=== PATIENT | male | born 1955 | race Asian ===

== ENCOUNTER 2023-09-09 12:38 | Emergency (ER) | payer SELFPAY ==
[~2023-09-09] VITALS: Ht 162.6 cm; Wt 72.6 kg
[2023-09-09 12:40] VITALS: BP_SYST 129; PULSE 91; RESP 18; TEMP 97.8; O2SAT 96
[2023-09-09 12:46] VITALS: BP_SYST 129; PULSE 91; RESP 18; TEMP 97.8; O2SAT 96
[2023-09-09] MEDS ORDERED: AMOX-423 PO (12:48)
[2023-09-09] MEDS: DIPHTH,PERTUSS(ACELL),TET VAC 0.5 ML VIAL (Tdap) I.M. ONE (12:51)
== END 2023-09-09 12:56 | disposition home or self-care (01) ==
LOC: SED 12:38
DX: S61.230A Puncture wound without foreign body of right index finger without damage to nail, initial encounter (principal); W55.01XA Bitten by cat, initial encounter; Y93.89 Activity, other specified; Y92.89 Other specified places as the place of occurrence of the external cause; Y99.8 Other external cause status
CPT/HCPCS: 90715; 99283